=== PATIENT | female | born 1990 | race Caucasian/White ===

== ENCOUNTER 2019-09-19 13:52 | Emergency (ER) | payer OTHER, SELFPAY ==
--- NOTE | ~2019-09-19 | XR_ITS ---
XR foot LT 2V DATE: 09/19/2019 14:20 INDICATION: Left foot pain following a fall today. 34 weeks . TECHNIQUE: AP and lateral views COMPARISON: None FINDINGS: No fracture or dislocation, periosteal reaction or bone destruction. Joint spaces are well preserved. No erosive change. IMPRESSION: Negative Reviewed, dictated and finalized at location B. IMPRESSION: Negative
[2019-09-19 14:02] VITALS: BP 119/70; PULSE 88; RESP 16; TEMP 37.4; O2SAT 98
--- NOTE | 2019-09-19 14:19 | ED.GENADULT ---
HPI - General Adult General Chief complaint: Extremity Injury, Lower Stated complaint: Fell Left ankle pain History of Present Illness HPI narrative: Patient is a 29-year-old female presents to the urgent care today via POV for evaluation of a foot injury that occurred 1 hour prior to arrival. She reports fourth and fifth metatarsal pain. She also reports pain, numbness, tingling, and decreased range of motion. Injury occurred while walking. She states she rolled her ankle inward. Denies taking OTC meds for symptoms. Sitting improves pain weightbearing worsens pain. Pertinent negatives: fever, chills, sweats, change in appetite, poor p.o. intake, malaise, calf tenderness, skin color changes, rash, warmth, swelling, loss of sensation, deformity, weakness, difficulty with ambulation/coordination, nausea, vomiting, lymphadenopathy, shortness of breath, chest pain, heart palpitations, and heart murmur. Related Data Home Medications Medication Instructions Recorded Confirmed 09/19/19 Zyrtec 09/19/19 Allergies Allergy/AdvReac Type Severity Reaction Status Date / Time latex Allergy Mild Verified 02/23/19 11:02 Review of Systems Review of Systems: Narrative: All other systems reviewed and are negative PMFSH Comments I have reviewed and agree with the patient's past medical, surgical, social, and family hx as documented by the RN. There is no relevant family history pertinent to the presenting complaint. Exam Narrative: Exam Narrative: GENERAL: Well-appearing, well-nourished, and in no acute distress. HEAD: Normocephalic, atraumatic. NECK: Supple. No Lymphadenopathy or nuchal rigidity appreciated. CHEST: Bilateral lung jones are clear to auscultation. No respiratory distress. No evidence of cough or pleuritic cp upon examination. HEART: Regular rate and rhythm. No murmur, gallop, or rub heard. EXTREMITIES: Moderate pain illicited pain to dorsal and medial aspect of L foot. Moderate generalized pain elicited with all active and passive ROM. No evidence of injury, decreased ROM, swelling, cyanosis, hematoma, laceration, abrasion, deformity, rash, or puncture. No evidence of dislocation, ligament laxity, effusion, or pain at rest. Pulses palpable at 2+, strength 5/5, and cap refill < 3 seconds in affected extremity. DTRs normal. Gait normal. SKIN: Warm, dry, no rash. NEURO: No focal deficits. Alert and oriented x3. SPECIAL OBSERVATIONS: Smiling. Laughing. No evidence of discomfort. Course Vital Signs Vital signs: Vital Signs Temperature 99.3 F 09/19/19 14:02 Pulse Rate 88 09/19/19 14:02 Respiratory Rate 16 09/19/19 14:02 Blood Pressure 119/70 09/19/19 14:02 Pulse Oximetry 98 09/19/19 14:02 Temperature 99.3 F 09/19/19 14:02 Pulse Rate 88 09/19/19 14:02 Respiratory Rate 16 09/19/19 14:02 Blood Pressure 119/70 09/19/19 14:02 Pulse Oximetry 98 09/19/19 14:02 Procedures Orthopedic Splinting/Casting Injury #1: Splinting/Casting Date: 09/19/19 Splinting/Casting Time: 14:40 Side: left Lower Extremity Injury Location: foot Splint: customized in ED (sandra wrap) Pre-Procedure Neuro Vascular Exam: normal Post-Procedure Neuro Vascular Exam: normal Medical Decision Making Differential Diagnosis Differential Diagnosis: Sprain, strain, cellulitis, open fracture, closed fracture, gout Medical Records Medical records reviewed: Yes I reviewed the patient's medical records. Vital Signs Vital Signs: Vital Signs Temperature 99.3 F 09/19/19 14:02 Pulse Rate 88 09/19/19 14:02 Respiratory Rate 16 09/19/19 14:02 Blood Pressure 119/70 09/19/19 14:02 Pulse Oximetry 98 09/19/19 14:02 Temperature 99.3 F 09/19/19 14:02 Pulse Rate 88 09/19/19 14:02 Respiratory Rate 16 09/19/19 14:02 Blood Pressure 119/70 09/19/19 14:02 Pulse Oximetry 98 09/19/19 14:02 Imaging Data Attestation: I personally revie
== END 2019-09-19 14:40 | disposition home or self-care (01) ==
PROVIDERS: Emergency Provider Nurse Practitioner Family
DX: S93.402A Sprain of unspecified ligament of left ankle, initial encounter (principal); S96.912A Strain of unspecified muscle and tendon at ankle and foot level, left foot, initial encounter; X50.9XXA Other and unspecified overexertion or strenuous movements or postures, initial encounter
CPT/HCPCS: 73620; 99213; G0463

== ENCOUNTER 2019-09-28 09:40 | Outpatient (RCR) | payer OTHER, SELFPAY ==
[2019-09-27 11:38] LABS: Hemoglobin A1C 5.1 % (<5.7)
[2019-09-27 11:49] LABS: Basophils Percent Auto 0.2 % (0.2-1.2); Eosinophils Absolute Auto 0.2 K/mm3 (0-0.3); Eosinophils Percent Auto 2.2 % (0-4.4); Hematocrit 33.8 % (37.0-47.0); Hemoglobin 10.7 g/dL (12.0-15.0); Immature Granulocyte Absolute 0.09 K/mm3 (0.00-0.031); Immature Granulocyte Percent A 0.9 % (0-0.5); Lymphocytes Absolute Auto 1.73 K/mm3 (0.9-3.2); Lymphocytes Percent Auto 17.6 % (18.3-44.2); Mean Corpuscular HGB Conc 31.7 g/dl (32-36); Mean Corpuscular Hemoglobin 24.9 pg (26-34); Mean Corpuscular Volume 78.6 fl (80-100); Mean Platelet Volume 10.9 fl (7.4-10.4); Monocytes Absolute Auto 0.6 K/mm3 (0.1-0.6); Monocytes Percent Auto 6.1 % (2.6-8.5); Neutrophils Absolute Auto 7.2 K/mm3 (1.3-6.7); Platelet Count Result 234 k/mm3 (150-375); Red Cell Distribution Width 13.3 % (11.5-14.5); White Blood Count 9.9 K/mm3 (4.5-10.0)
[2019-09-27 12:12] LABS: Hepatitis B Surface Antigen Negative (Negative); Rubella IgG Antibody 23.4 IU/ML
[2019-09-27 12:19] LABS: HIV 1/2 Ab P24 Ag Result Negative (Negative)
[2019-09-27 12:26] LABS: Vitamin D 25 Hydroxy 20.8 ng/mL
[2019-09-28] MEDS: RHO(D) IMMUNE GLOBULIN 300 MCG SYRINGE IM (09:57)
[2019-09-30 10:31] LABS: Rapid Plasma Reagin Non-Reactive (NonReactive)
== END 2019-12-26 23:59 | disposition home or self-care (01) ==
LOC: ANHLAB 09:40
PROVIDERS: Visit Provider Obstetrics & Gynecology
DX: Z36.89 Encounter for other specified antenatal screening (principal); Z29.13 Encounter for prophylactic Rho(D) immune globulin; O36.0990 Maternal care for other rhesus isoimmunization, unspecified trimester, not applicable or unspecified; Z3A.00 Weeks of gestation of pregnancy not specified
CPT/HCPCS: 36415; 82306; 83036; 85025; 86592; 86703; 86762; 86900; 86901; 87340; 90384; 96372; G0432; J2790

== ENCOUNTER 2019-10-09 16:55 | Outpatient (RCR) | payer OTHER, SELFPAY ==
--- NOTE | ~2019-10-09 | US_ITS ---
EXAMINATION: US OB limited w BPP DATE: 10/09/2019 18:11 CDT INDICATION: Decreased movements. TECHNIQUE: Real-time transabdominal obstetric ultrasound. FINDINGS: There is a single living fetus in vertex presentation. The placenta is fundal without placenta previ a. cardiac activity and movement is noted with a heart rate of 142 beats per minute. A FI is 13.1 cm. Biophysical profile: breathin of 2 movement: 2 of 2 tone: 2 of 2 Amniotic flud pocket: 2 of 2 Total score: 8 of 8 IMPRESSION: 1. Single living intrauterine with heart rate of 142 BPM. 2: Total biophysical profile score of 8/8. 3: Normal DARRELL measures 13.1 cm. Reviewed, dictated and finalized at location A.
[2019-10-09 17:40] VITALS: BP 120/73; PULSE 96
--- NOTE | 2019-10-09 18:13 | PC.NURSE ---
Dr. Valladares notified of pt BPP and DARRELL results. BPP 8/8 and DARRELL 13.8. okay to Discharge. Labor precautions given.
== END 2019-10-31 09:30 | disposition home or self-care (01) ==
LOC: ANHOBOP 16:55
PROVIDERS: Family Provider Obstetrics & Gynecology; Visit Provider Obstetrics & Gynecology
DX: O36.8130 Decreased fetal movements, third trimester, not applicable or unspecified (principal); Z3A.35 35 weeks gestation of pregnancy
CPT/HCPCS: 59025; 76815; 76819

== ENCOUNTER 2019-10-31 01:50 | Inpatient (IN) | payer OTHER, SELFPAY ==
[2019-10-31] VITALS (59 sets, daily range): BP systolic 80–133; BP diastolic 62–90; PULSE 25–122; RESP 18; TEMP 36.6–37.3; O2SAT 81–100; BMI 29.2
--- NOTE | 2019-10-31 02:08 | LDADM ---
This patient, Anna Ovalle, was admitted to Labor/Delivery/Recovery 107 on 10/31/19 at 01:50. Plans for labor, pain management and were discussed with patient. Patient/family oriented to hospital policies and general routines including ID bracelet, bed and alarms, visiting hours, pain management, procedures, bathroom and other care routines, personal items, smoking policy, room service/diet and guest tray routines, security routines, and visiting hours. Patient/Family are encouraged to report perceived risks to care and to ask questions if they do not understand what they are told or what they should do. See OBIX for further documentation.
[2019-10-31 02:16] LABS: Basophils Percent Auto 0.2 % (0.2-1.2); Eosinophils Absolute Auto 0.2 K/mm3 (0-0.3); Eosinophils Percent Auto 1.3 % (0-4.4); Hematocrit 33.8 % (37.0-47.0); Hemoglobin 10.5 g/dL (12.0-15.0); Immature Granulocyte Absolute 0.07 K/mm3 (0.00-0.031); Immature Granulocyte Percent A 0.6 % (0-0.5); Lymphocytes Absolute Auto 2.58 K/mm3 (0.9-3.2); Lymphocytes Percent Auto 20.6 % (18.3-44.2); Mean Corpuscular HGB Conc 31.1 g/dl (32-36); Mean Corpuscular Hemoglobin 23.1 pg (26-34); Mean Corpuscular Volume 74.4 fl (80-100); Mean Platelet Volume 11.2 fl (7.4-10.4); Monocytes Absolute Auto 0.6 K/mm3 (0.1-0.6); Monocytes Percent Auto 5.1 % (2.6-8.5); Neutrophils Absolute Auto 9.1 K/mm3 (1.3-6.7); Neutrophils Percent Auto 72.2 % (45.5-73.1); Platelet Count Result 242 k/mm3 (150-375); Red Blood Count 4.54 M/mm3 (4.2-5.4); Red Cell Distribution Width 14.4 % (11.5-14.5); White Blood Count 12.5 K/mm3 (4.5-10.0)
[2019-10-31] MEDS: LACTATED RINGERS 1,000 ML 125 ML IV CONT ×2 (02:17→02:48)
--- NOTE | 2019-10-31 02:30 | WPDANESEPP ---
Anes - Eval Pre Procedure Procedure: Labor epidural Date/Time: 10/31/19 02:30 Surgeon: nestor Preop Diagnosis: Abd pain with epidural Pre Op Diagnosis: Contractions Patient Data Age: 29 Gender: F Height: 5 ft 6 in Weight: 82 kg Last Vital Signs Pulse 107 H 10/31/19 02:01 BP 115/85 10/31/19 02:01 Allergies Allergy/AdvReac Type Severity Reaction Status Date / Time latex Allergy Mild Verified 02/23/19 11:02 Home Medications Medication Instructions Recorded Confirmed Type PNV cmb#95-ferrous fumarate-FA 1 tablet PO DAILY 10/28/19 10/28/19 History [] acetaminophen [Tylenol] 325 mg PO ONCE PRN 10/28/19 10/28/19 History cetirizine [Zyrtec] 10 mg PO DAILY 10/28/19 10/28/19 History Laboratory Tests 10/31/19 10/31/19 02:09 02:09 WBC 12.5 K/mm3 H K/mm3 (4.5-10.0) RBC 4.54 M/mm3 M/mm3 (4.2-5.4) Hgb 10.5 g/dL L g/dL (12.0-15.0) Hct 33.8 % L % (37.0-47.0) MCV 74.4 fl L fl (80-100) MCH 23.1 pg L pg (26-34) MCHC 31.1 g/dl L g/dl (32-36) RDW 14.4 % % (11.5-14.5) Plt Count 242 k/mm3 k/mm3 (150-375) MPV 11.2 fl H fl (7.4-10.4) Immature Gran % (Auto) 0.6 % H % (0-0.5) Neut % (Auto) 72.2 % % (45.5-73.1) Lymph % (Auto) 20.6 % % (18.3-44.2) Dougherty % (Auto) 5.1 % % (2.6-8.5) Eos % (Auto) 1.3 % % (0-4.4) Baso % (Auto) 0.2 % % (0.2-1.2) Lymph # (Auto) 2.58 K/mm3 K/mm3 (0.9-3.2) Dougherty # (Auto) 0.6 K/mm3 K/mm3 (0.1-0.6) Eos # (Auto) 0.2 K/mm3 K/mm3 (0-0.3) Baso # (Auto) 0.0 K/mm3 K/mm3 (0.0-0.1) Abs Immat Gran (auto) 0.07 K/mm3 H K/mm3 (0.00-0.031) Absolute Neuts (auto) 9.1 K/mm3 H K/mm3 (1.3-6.7) Absolute Nucleated RBC 0.0 K/mm3 K/mm3 (0.0-0.012) Nucleated RBC % 0.0 % % (0.0-0.2) RPR Pending Patient hx anesthesia problems: none Family hx anesthesia problems: none PMFSH Past Medical History Medical History Anxiety and depression Migraines Smoker Social History Social History Years smoked: 10 Smoking status: Light tobacco smoker Tobacco type: cigarettes Second hand tobacco smoke exposure: Yes Substance use: never Gender identity (if verbalized by the patient): Female Spiritual care concerns: No Exam Day of Procedure 10/31/19 02:30 Patient weight: overweight Lungs: clear to auscultation Airway: Mallampati scale class II Neurological: alert and oriented
[2019-10-31] MEDS: CALCIUM CARBONATE (TUMS) 500 MG (200 MG ELEMENTAL) PO ×2 (03:07→05:57)
[2019-10-31] MEDS: OXYTOCIN 30 UNITS/NS 500 ML 30 UNITS/500 ML BAG 999 UNITS IV CONT (04:17)
--- NOTE | 2019-10-31 04:28 | WPDOBADMIT ---
Obstetrics - Admit Note Admission Note: 9 cm bulging bag AROM clear fluid. record reviewed. No pertinent additions to the history and/or any subsequent changes in the physical findings that are not consistent with the expected course of the were found. Additions to the history and/or subsequent changes in the physical findings follow. None.
--- NOTE | 2019-10-31 04:33 | P.PCNOB_ITS ---
OB - Delivery Note Procedure Delivery date: 10/31/19 events: Labor Augmentation Intrapartal events: None Delivery augmentation: rupture of membranes Delivery monitor: external FHT and external uterine Route of delivery: Laceration description: None Anesthesia type: Epidural Disposition: floor [place] Baby Date of : 10/31/19 Time of : 04:12 Weeks of gestation at delivery: 38 Infant gender: Male Weight (pounds): 7 Weight (ounces): 2 presentation: vertex position: Right Occiput Anterior Placenta delivery description: Spontaneous cord vessel description: 3 Vessels score one minute: 9 score five minutes: 9
--- NOTE | 2019-10-31 04:45 | PM.OBDSVD ---
DS: Diagnosis Discharge Diagnosis (1) (normal spontaneous vaginal delivery): Code(s): O80 - Encounter for full-term uncomplicated delivery Status: Acute Assessment and Plan: discharged home OB - DS: Summary OB Procedures : Ultrasound OB Procedures Intrapartum: Spontaneous Vag Delivery OB Procedures: : None Time Spent with Patient Time attestation: Total time spent providing and/or coordinating discharge services: Exam Narrative: Exam Narrative: ff below umbilicus DS: Data Data Completed and Pending Labs on day of discharge: Labs from last 24 hours 10/31/19 10/31/19 02:09 02:09 WBC 12.5 H RBC 4.54 Hgb 10.5 L Hct 33.8 L MCV 74.4 L MCH 23.1 L MCHC 31.1 L RDW 14.4 Plt Count 242 MPV 11.2 H Immature Gran % (Auto) 0.6 H Neut % (Auto) 72.2 Lymph % (Auto) 20.6 [place] % (Auto) 5.1 Eos % (Auto) 1.3 Baso % (Auto) 0.2 Lymph # (Auto) 2.58 [place] # (Auto) 0.6 Eos # (Auto) 0.2 Baso # (Auto) 0.0 Abs Immat Gran (auto) 0.07 H Absolute Neuts (auto) 9.1 H Absolute Nucleated RBC 0.0 Nucleated RBC % 0.0 RPR Pending Discharge Plan Discharge Attending physician on discharge: Az Oswald Discharging Clinician: Az Oswald Patient Disposition: Home, Self-Care Activity: may shower Diet: regular Discharge Instructions: Education: Mom and Baby Guide Given to: Mother Follow-Up: Call your delivering provider's office for an appointment to be seen in: Call for f/u appointment Mom and baby should come to the [facility] for the follow-up appointment. Appointment Date/Time: 2019 at 10:00 am What to expect at your follow-up visit: Blood Pressure Check Physical Assessment Call [phone] if you are unable to keep your appointment time. BREAST CARE: 1. Wear a snug supportive bra. 2. For engorgement discomfort: Breast Feeding: A. Apply warm moist washcloths B. Express milk as needed to relieve engorgement C. Wear loose clothing 3. For sore nipples: A. Identify correct latch-on B. Apply warm moist washcloths before and after nursing C. Air dry nipples after nursing D. May apply Lansinoh cream to nipples EPISIOTOMY/PERINEAL CARE: 1. Until bleeding stops, use your sundeep bottle after urinating 2. Change your pad frequently throughout the day 3. You may take sitz baths several times a day (fill your bathtub with warm water and soak for 20 minutes.) Do NOT bathe in the water 4. No tub baths until seen by your physician - You may shower ACTIVITY: 1. Rest as much as possible. 2. Do not exercise or lift anything heavier than your baby (such as laundry or other children.) 3. Avoid stairs or driving as much as possible. 4. Do not put anything into the vagina. No douching, tampons, or sexual activity until seen by physician. NOTIFY PHYSICIAN IF YOU HAVE ANY QUESTIONS OR IF ANY OF THE FOLLOWING SYMPTOMS OCCUR: 1. If your episiotomy or incision becomes red, swollen, or more painful than what you have experienced in the hospital. 2. If your vaginal bleeding becomes foul smelling. 3. If your vaginal bleeding becomes more heavy than a period or if your bleeding changes from pink to bright red. However, you may pass an occasional walnut-sized clot once or twice for the first week . 4. If you experience a sharp, shooting pain in you calves. 5. If you discover a hard, reddened area on your breast or if you experience flu-like symptoms. DIET: 1. Eat regular, well-balanced meals. 2. Drink plenty of fluids daily. If , drink to thirst. Stand Alone Forms: General Discharge Information Follow-up/Referrals: Az Oswald MD [Physician] - Call for Appointment Discharge Medications: New ibuprofen 600 mg Tablet 600 mg PO Q6H PRN (Reason: Cramping) Qty: 30 RF: 1 p
[2019-10-31] MEDS: OXYTOCIN 30 UNITS/NS 500 ML 30 UNITS/500 ML BAG 125 UNITS IV CONT (04:59)
[2019-10-31] MEDS: ACETAMINOPHEN 325 MG TABLET 650 MG PO (07:20)
[2019-10-31 07:25] LABS: Rapid Plasma Reagin Non-Reactive (NonReactive)
[2019-10-31] MEDS: WITCH HAZEL 40 PADS 1 PAD TOPICAL (08:22)
[2019-10-31] MEDS: IBUPROFEN 600 MG TABLET PO (08:22)
[2019-10-31] MEDS: MULTIVIT/MIN/PREN/FOL AC/IRON TABLET 1 TAB PO (09:56)
[2019-10-31] MEDS: LANOLIN (LANSINOH) 7.5 GM CREAM 1 APPLIC TOPICAL (09:57)
--- NOTE | 2019-10-31 11:56 | PC.NURSE ---
0828-Patient transferred to post room #292 via wheelchair. Support person present. Oriented to unit, room, information board, rooming in, admission packet and security measures. Patient verbalizes understanding.
[2019-10-31] MEDS: DOCUSATE SODIUM 100 MG CAPSULE PO (22:26)
[2019-11-01] MEDS: IBUPROFEN 600 MG TABLET PO ×2 (04:28→12:13)
[2019-11-01 05:49] LABS: Hematocrit 28.4 % (37.0-47.0); Hemoglobin 8.5 g/dL (12.0-15.0)
[2019-11-01] MEDS: MULTIVIT/MIN/PREN/FOL AC/IRON TABLET 1 TAB PO (08:36)
[2019-11-01] MEDS: DOCUSATE SODIUM 100 MG CAPSULE PO (08:37)
[2019-11-01] MEDS: POLYSACCHARIDE IRON COMPLEX 150 MG CAPSULE PO (08:37)
--- NOTE | 2019-11-01 08:54 | WPDANLDPN2 ---
Anes-Prog Note L&D Date/Time: 11/01/19 08:54 Comfortable throughout: labor and delivery Neuraxial method: epidural Epidural/Spinal procedure site: clean & non-tender Neuro status: Neuro function grossly intact. Cardiovascular status: normal Respiratory status: normal Airway patency: baseline Mental status: baseline Post-Op hydration status: normal Vital Signs: Last Vital Signs Temp 37.2 C 10/31/19 19:10 Pulse 73 10/31/19 19:10 Resp 18 10/31/19 19:10 BP 121/71 10/31/19 19:10 Pulse Ox 99 10/31/19 08:35 Pain score (VAS): 0/10. Patient resting in bed at time of assessment, appears comfortable. Post-procedural complaints: none Patient feedback: Patient satisfied with anesthetic care.
[2019-11-01 09:05] VITALS: BP 105/69; PULSE 68; RESP 18; TEMP 36.4; O2SAT 98
--- NOTE | 2019-11-01 12:04 | PM.OBPNVD ---
OB - PN: Subj Subjective Date/time seen: 11/01/19 12:04 Patient comments: no complaints and tolerating diet [place] baby status: doing well OB - PN: Obj Data Labs CBC & Chem 7: 11/01/19 04:34 Labs: Laboratory Results - last 24 hr 11/01/19 11/01/19 04:34 04:35 Hgb 8.5 L Hct 28.4 L Blood Type B Negative Antibody Screen TNP ALESSANDRO, IgG Interpret TNP ALESSANDRO, Poly Interpret TNP ALESSANDRO, Complement Interp TNP Screen Negative Baby's Blood Type A pos Baby's ALESSANDRO Positive Doses of RhIg Required 1 OB - PN A/P Assessment and Plan (1) (normal spontaneous vaginal delivery): Code(s): O80 - Encounter for full-term uncomplicated delivery Status: Acute Assessment and Plan: continue with ppp care. (2) Other iron deficiency anemias: Code(s): D50.8 - Other iron deficiency anemias Status: Acute Assessment and Plan: irons supple;ment twice a day Time Spent With Patient Time: Total time spent is greater than 50% in coordination of care (as documented) at patient's floor/unit and/or counseling patient:
[2019-11-01] MEDS: RHO(D) IMMUNE GLOBULIN 300 MCG SYRINGE IM (13:12)
--- NOTE | 2019-11-01 13:23 | PC.NURSE ---
Patient was given the opportunity to view the discharge video Mother & Baby Care, The First Two Weeks and to ask questions. Patient declined viewing the video and has been given the mother/baby guide for home reference.
[2019-11-02 10:20] VITALS: BP 111/76; PULSE 92; RESP 18; TEMP 37
== END 2019-11-01 13:50 | disposition home or self-care (01) | DRG 560 ==
LOC: ANHLDR 07:20 → ANHOB2 08:35
PROVIDERS: Admitting Provider Obstetrics & Gynecology; Visit Provider Obstetrics & Gynecology
DX: O99.334 Smoking (tobacco) complicating childbirth (principal); Z37.0 Single live birth; Z3A.38 38 weeks gestation of pregnancy; F17.210 Nicotine dependence, cigarettes, uncomplicated; O99.344 Other mental disorders complicating childbirth; F41.8 Other specified anxiety disorders; O99.02 Anemia complicating childbirth; D50.8 Other iron deficiency anemias
CPT/HCPCS: 36415; 85014; 85018; 85025; 85461; 86592; 86850; 86880; 86900; 86901; 90384; A9270; J2590; J2790; J2795; J7120

== ENCOUNTER 2020-03-11 22:41 | Emergency (ER) | payer OTHER, SELFPAY ==
[2020-03-11 22:43] VITALS: BP 128/85; PULSE 86; RESP 14; TEMP 36.5; O2SAT 100
[2020-03-12 00:59] VITALS: BP 111/76; PULSE 78; RESP 16; TEMP 36.4; O2SAT 100
--- NOTE | 2020-03-12 02:07 | ED.HA ---
HPI - Headache General Chief Complaint: Headache Stated Complaint: migraine VALENTIN Time Seen by Provider: 03/12/20 02:06 History of Present Illness HPI Narrative: Severe throbbing headache for the past 2 days. Associated with nausea,vomiting, photophobia. This is the smae as her previous migraines. No fever, trauma, weakness, numbness, vision changes. Related Data Home Medications Medication Instructions Recorded Confirmed PNV cmb#95-ferrous fumarate-FA 1 tablet PO DAILY 10/28/19 10/28/19 [] Zyrtec 10 mg PO DAILY 10/28/19 10/28/19 Allergies Allergy/AdvReac Type Severity Reaction Status Date / Time latex Allergy Mild Verified 02/23/19 11:02 Review of Systems Review of Systems: All systems reviewed & are unremarkable except as noted in HPI and below Constitutional: Constitutional: Denies fever(s) and Denies weakness Eyes: Eyes: Denies change in vision and Reports photophobia ENT: Denies dizziness Cardiovascular: Cardiovascular: Denies chest pain Respiratory: Respiratory: Denies dyspnea Gastrointestinal: Gastrointestinal: Denies abdominal pain, Reports nausea and Reports vomiting PMFSH Past Medical History Medical History Anxiety and depression Migraines (normal spontaneous vaginal delivery) Other iron deficiency anemias Smoker Social History Social History Years smoked: 10 Smoking status: Light tobacco smoker Tobacco type: cigarettes Second hand tobacco smoke exposure: Yes Substance use: never Gender identity (if verbalized by the patient): Female Spiritual care concerns: No Exam Const: General: healthy appearing, no acute distress and alert Orientation/consciousness: patient oriented x3 HENMT: Head: normal to inspection Eyes: Pupils: Equal, round and reactive pupils present Resp: Effort & Inspection: normal respiratory effort Auscultation: clear to auscultation bilaterally Cardio: Rate: regular rate Rhythm: regular rhythm Skin: General skin exam: normal color Neuro: General: patient oriented x3, moves all extremities, no focal motor deficits and CN's II-XI intact bilaterally Speech: normal speech Gait exam (Neuro): Normal gait present Extrem: General: normal to inspection Course Vital Signs Vital signs: Vital Signs Temperature 36.5 C 03/11/20 22:43 Pulse Rate 86 03/11/20 22:43 Respiratory Rate 14 03/11/20 22:43 Blood Pressure 128/85 03/11/20 22:43 Pulse Oximetry 100 03/11/20 22:43 Temperature 36.4 C L 03/12/20 00:59 Pulse Rate 58 L 03/12/20 03:48 Respiratory Rate 17 03/12/20 03:48 Blood Pressure 98/67 L 03/12/20 03:48 Pulse Oximetry 99 03/12/20 03:48 MDM - Headache MDM Narrative Medical decision making narrative: Reports that this is the same as usual migraine. No indicaiton for imaging. Feeling better and ready for discharge after treatment. Differential Diagnosis Differential diagnosis: Likely migraine Medical Records Attestation: I reviewed the patient's medical records. Discharge Plan Discharge Clinical Impression: Migraine Patient Disposition: Home, Self-Care Condition: Stable Instructions: Migraine Headache (ED) Prescriptions: No Action Zyrtec 10 mg Capsule 10 mg PO DAILY RF: 0 PNV cmb#95-ferrous fumarate-FA [] 28 mg iron- 800 mcg Tablet 1 tablet PO DAILY RF: 0 ibuprofen 600 mg Tablet 600 mg PO Q6H PRN (Reason: Cramping) Qty: 30 RF: 1 polysaccharide iron complex 150 mg iron Capsule 150 mg PO BIDWM Qty: 60 RF: 1 acetaminophen [Mapap (acetaminophen)] 325 mg Tablet 650 mg PO Q6H PRN (Reason: Mild Pain (1-3) Or Headache) RF: 0 Follow-up/Referrals: UNKNOWN,DOCTOR [Primary Care Provider] - Discharge Date/Time: 03/12/20 03:49
[2020-03-12] MEDS: KETOROLAC 30 MG/ML VIAL (*BKC) IV PUSH (02:37)
[2020-03-12] MEDS: diphenhydrAMINE HCl INJ 50 MG/ML VIAL IV PUSH (02:37)
[2020-03-12] MEDS: METOCLOPRAMIDE HCL INJ 10 MG/2 ML VIAL IV PUSH (02:38)
[2020-03-12] MEDS: SODIUM CHLORIDE 0.9% IV 1,000 ML 999 ML IV CONT (02:38)
[2020-03-12 03:48] VITALS: BP 98/67; PULSE 58; RESP 17; O2SAT 99
== END 2020-03-12 03:49 | disposition home or self-care (01) ==
PROVIDERS: Emergency Provider Emergency Medicine
DX: G43.909 Migraine, unspecified, not intractable, without status migrainosus (principal); F17.210 Nicotine dependence, cigarettes, uncomplicated
CPT/HCPCS: 96365; 96375; 99284; J0131; J1200; J1885; J2765; J7030

== ENCOUNTER 2020-06-05 20:08 | Emergency (ER) | payer OTHER, SELFPAY ==
[2020-06-05 20:10] VITALS: BP 120/70; PULSE 72; RESP 17; TEMP 36.2; O2SAT 99
--- NOTE | 2020-06-05 20:38 | ED.HA ---
HPI - Headache General Chief Complaint: Headache Stated Complaint: migraine Time Seen by Provider: 06/05/20 20:37 Source: patient Mode of arrival: ambulatory Limitations: no limitations History of Present Illness HPI Narrative: Patient is a 29-year-old female complaining of a migraine headache, frontal, throbbing, 8 out of 10, that started approximately 2 hours ago. Patient states she has a history of migraines and this is her typical migraine headache. Patient denies any neck pain, stiffness, speech or visual disturbance, weakness, numbness, unsteady gait, fever, chills or rash. Related Data Allergies Allergy/AdvReac Type Severity Reaction Status Date / Time latex Allergy Mild Unknown Verified 06/05/20 20:49 Review of Systems Review of Systems: All systems reviewed & are unremarkable except as noted in HPI and below Constitutional: Constitutional: Denies body ache(s), Denies chills, Denies excessive sweating, Denies fatigue, Denies fever(s), Denies headache(s), Denies lethargy, Denies malaise, Denies weakness and Denies weight loss Eyes: Eyes: Denies blurry vision, Denies change in vision and Denies loss of vision ENT: Denies dizziness, Denies ear discharge, Denies headache(s), Denies lip swelling, Denies epistaxis, Denies nasal congestion, Denies neck pain, Denies throat swelling and Denies tongue swelling Cardiovascular: Cardiovascular: Denies chest pain, Denies chest pain at rest, Denies chest pain with activity, Denies diaphoresis, Denies rapid heart rate, Denies edema, Denies irregular heart rhythm, Denies lightheadedness, Denies palpitations, Denies dyspnea and Denies dyspnea on exertion Respiratory: Respiratory: Denies chest congestion, Denies cough, Denies hemoptysis, Denies dyspnea and Denies dyspnea on exertion Gastrointestinal: Gastrointestinal: Denies abdominal pain, Denies melena, Denies hematochezia, Denies diarrhea, Denies nausea, Denies vomiting and Denies hematemesis Musculoskeletal: Musculoskeletal: Denies abnormal gait, Denies deformity, Denies joint swelling, Denies limited range of motion, Denies neck pain and Denies numbness Neurologic: Denies Abnormal speech present, Denies abnormal gait, Denies confusion, Denies dizziness, Denies focal weakness, Denies loss of vision, Denies numbness, Denies Other visual disturbances, Denies Sensory deficit (Neuro) and Denies weakness Psychiatric: Psychiatric: Denies confusion, Denies depression, Denies auditory hallucinations, Denies homicidal ideation and Denies suicidal ideation Endocrine: Endocrine: Denies cold intolerance, Denies excessive sweating, Denies fatigue, Denies heat intolerance and Denies palpitations Hematologic/Lymphatic: Hematologic/Lymphatic: Denies easy bleeding and Denies easy bruising Allergic/Immunologic: Allergic/Immunologic: Denies lip swelling, Denies throat swelling and Denies tongue swelling PMFSH Past Medical History Medical History Anxiety and depression Migraines (normal spontaneous vaginal delivery) Other iron deficiency anemias Smoker Social History Social History Years smoked: 10 Smoking status: Light tobacco smoker Tobacco type: cigarettes Second hand tobacco smoke exposure: Yes Substance use: never Gender identity (if verbalized by the patient): Female Spiritual care concerns: No Exam Const: General: cooperative, healthy appearing, comfortable, no acute distress, well developed, alert and awake; No confusion Orientation/consciousness: oriented to person, oriented to place, oriented to time, patient oriented x3 and No confusion Limitations: no limitations HENMT: Head: normal to inspection, normocephalic and atraumatic Ears: hearing grossly normal bilaterally, TM normal on the right and TM normal on the left General nose exam: Normal external nose present, Normal nares present and No nasal discharge present Face and sinus: normal facial
[2020-06-05] MEDS: diphenhydrAMINE HCl INJ 50 MG/ML VIAL 25 MG IV PUSH (20:56)
[2020-06-05] MEDS: METOCLOPRAMIDE HCL INJ 10 MG/2 ML VIAL IV PUSH (20:57)
[2020-06-05] MEDS: SODIUM CHLORIDE 0.9% IV 1,000 ML 999 ML IV CONT (20:57)
[2020-06-05 22:14] VITALS: BP 106/62; PULSE 51; RESP 16; TEMP 36.4; O2SAT 100
== END 2020-06-05 22:14 | disposition home or self-care (01) ==
PROVIDERS: Emergency Provider Emergency Medicine
DX: G43.909 Migraine, unspecified, not intractable, without status migrainosus (principal); F17.210 Nicotine dependence, cigarettes, uncomplicated
CPT/HCPCS: 96361; 96374; 96375; 99284; J1200; J2765; J7030

== ENCOUNTER 2020-07-08 13:18 | Outpatient (CLI) | payer OTHER, SELFPAY ==
--- NOTE | ~2020-07-08 | US_ITS ---
EXAMINATION: US OB <=14 wk fetus w TV EXAM DATE: 07/08/2020 13:54 INDICATION: , uncertain dates. 1st trimester. TECHNIQUE: Pelvic obstetrical transabdominal sonogram was performed by a technologist. There are mu ltiple grayscale and Doppler images available for interpretation. There are no earlier studies of th is gestation for comparison. FINDINGS: Uterus measures 8.6 x 4.8 x 7.8 cm. There is intrauterine gestation sac. The mean sac sophie meter of 9 mm corresponds to estimated gestational age by ultrasound of 5 weeks 3 days. Yolk sac is identified. There is no sonographic evidence of subchorionic hemorrhage. Both ovaries are identif ied and are morphologically normal. Small amount of free fluid in the pelvic cul-de-sac. IMPRESSION: Early intrauterine gestation sac, age by ultrasound 5 weeks 3 days. Cannot confirm viable pole at this time. Reviewed, dictated and finalized at location A. OGRAPHIC SURVEYOR
== END 2020-07-08 13:19 | disposition home or self-care (01) ==
PROVIDERS: PCP Internal Medicine; Visit Provider Obstetrics & Gynecology
DX: Z36.87 Encounter for antenatal screening for uncertain dates (principal); Z3A.01 Less than 8 weeks gestation of pregnancy
CPT/HCPCS: 76801; 76817

== ENCOUNTER 2020-07-17 08:40 | Outpatient (CLI) | payer OTHER, SELFPAY ==
--- NOTE | ~2020-07-17 | US_ITS ---
EXAMINATION: US OB <=14 wk fetus w TV DATE: 07/17/2020 11:12 INDICATION: First trimester dating TECHNIQUE: Real-time pelvic transabdominal and transvaginal ultrasound was performed. COMPARISON: 07/08/2020 FINDINGS: The uterus measures 9.7 x 6.5 x 5.3 cm. There is an intrauterine gestational sac. An appro ximately 1.2 x 1.1 cm hypoechoic area is seen adjacent to the gestational sac. A yolk sac is identifi ed. heart motion is identified measuring 115 beats per minute (bpm) by M-mode Doppler. The feta l crown rump length measures 6 mm , which correlates with an estimated gestational age of 6 weeks and 3 day(s) (+/-) 4 day(s). The right ovary measures 5.2 x 2.2 x 2.2 cm. The left ovary measures 2.8 x 1.6 x 1.6 cm. There is nor mal vascular flow in the ovaries. There is no free fluid in the pelvis. IMPRESSION: 1. Live intrauterine with an estimated gestational age of 6 weeks and 3 day(s) (+/-) 4 day( s) and an estimated delivery date of 03/09/2021. 2. Small subchorionic hematoma. Reviewed, dictated and finalized at location A. WORK TIER IMPRESSION: 1. Live intrauterine with an estimated gestational age of 6 weeks and 3 day(s) (+/-) 4 day(s) and an estimated delivery date of 03/09/2021. 2. Small subchorionic hematoma.
== END 2020-07-17 08:41 | disposition home or self-care (01) ==
PROVIDERS: PCP Internal Medicine; Visit Provider Obstetrics & Gynecology
DX: Z36.87 Encounter for antenatal screening for uncertain dates (principal); O36.8911 Maternal care for other specified fetal problems, first trimester, fetus 1; Z3A.00 Weeks of gestation of pregnancy not specified
CPT/HCPCS: 76801; 76817

== ENCOUNTER 2020-08-04 10:21 | Outpatient (CLI) | payer OTHER, SELFPAY ==
--- NOTE | ~2020-08-04 | US_ITS ---
EXAMINATION: US OB <= 14 weeks fetus DATE: 08/04/2020 10:47 INDICATION: Follow-up subchorionic hemorrhage TECHNIQUE: Real-time transabdominal and transvaginal obstetric ultrasound. FINDINGS: Comparison to multiple prior studies sequentially, with oldest reviewed study dated 2020. The uterus measures 10.5 x 7.5 x 5.7 cm. There is an intrauterine gestational sac, with pole id entified. The crown rump length measures 2.17 cm. heart tones are identified measuring 169 bpm . There is a subchorionic hemorrhage measuring 2 x 1.8 x 0.7 cm. The ovaries are within normal limits . Right ovary measures 3.3 x 1.5 x 2 cm. Left ovary measures 3.6 x 2.4 x 1.5 cm. IMPRESSION: 1. SL IUP with an EGA of 9 weeks, 2 days (EDC by initial ultrasound of 03/07/2021). 2: Small subchorionic hemorrhage. Reviewed, dictated and finalized at location A. LITIONIST IMPRESSION: 1. SL IUP with an EGA of 9 weeks, 2 days (EDC by initial ultrasound of 03/07/20). 2: Small subchorionic hemorrhage.
== END 2020-08-04 10:22 | disposition home or self-care (01) ==
LOC: ANHIMG 10:22
PROVIDERS: PCP Internal Medicine; Visit Provider Obstetrics & Gynecology
DX: O36.8911 Maternal care for other specified fetal problems, first trimester, fetus 1 (principal); Z3A.09 9 weeks gestation of pregnancy
CPT/HCPCS: 76801

== ENCOUNTER 2020-09-02 10:30 | Outpatient (CLI) | payer OTHER, SELFPAY ==
--- NOTE | ~2020-09-02 | US_ITS ---
EXAMINATION: US OB <= 14 weeks fetus EXAM DATE: 09/02/2020 10:55 INDICATION: Follow-up subchorionic hematoma. 2nd trimester. TECHNIQUE: Pelvic obstetrical transabdominal sonogram was performed by a technologist. There are mu ltiple grayscale and Doppler images available for interpretation. Comparison is made to prior examina tion from 08/04/2020. FINDINGS: Uterus measures 13.0 x 9.2 x 7.8 cm. There is intrauterine gestation sac. pole with heart rate confirmed at 161 beats per minute. The 7.1 cm crown-rump length corresponds to estimated gestational age by ultrasound of 13 weeks 2 days. There is no sonographic evidence of subchorioni c hemorrhage, can't identify previously seen sonographic abnormality. Both ovaries identified, morp hologically normal and demonstrate low resistance Doppler flow. IMPRESSION: Live intrauterine gestation without evidence of subchorionic hemorrhage. Reviewed, dictated and finalized at location A. STANT PORTFOLIO MANAGER IMPRESSION: Live intrauterine gestation without evidence of subchorionic hemor rhage.
== END 2020-09-02 10:31 | disposition home or self-care (01) ==
PROVIDERS: PCP Internal Medicine; Visit Provider Obstetrics & Gynecology
DX: O36.8910 Maternal care for other specified fetal problems, first trimester, not applicable or unspecified (principal)
CPT/HCPCS: 76801

== ENCOUNTER 2020-09-07 14:36 | Outpatient (RCR) | payer OTHER, SELFPAY ==
[2020-09-07 15:47] LABS: Basophils Percent Auto 0.2 % (0.2-1.2); Eosinophils Absolute Auto 0.3 K/mm3 (0-0.3); Eosinophils Percent Auto 3.4 % (0-4.4); Hematocrit 38.1 % (37.0-47.0); Hemoglobin 12.5 g/dL (12.0-15.0); Immature Granulocyte Absolute 0.04 K/mm3 (0.00-0.031); Immature Granulocyte Percent A 0.4 % (0-0.5); Lymphocytes Percent Auto 20.7 % (18.3-44.2); Mean Corpuscular HGB Conc 32.8 g/dl (32-36); Mean Corpuscular Hemoglobin 27.7 pg (26-34); Mean Corpuscular Volume 84.5 fl (80-100); Mean Platelet Volume 11.3 fl (7.4-10.4); Monocytes Absolute Auto 0.5 K/mm3 (0.1-0.6); Monocytes Percent Auto 5.8 % (2.6-8.5); Neutrophils Absolute Auto 6.4 K/mm3 (1.3-6.7); Neutrophils Percent Auto 69.5 % (45.5-73.1); Platelet Count Result 217 k/mm3 (150-375); Red Blood Count 4.51 M/mm3 (4.2-5.4); Red Cell Distribution Width 13.5 % (11.5-14.5); White Blood Count 9.2 K/mm3 (4.5-10.0)
[2020-09-07 15:59] LABS: Hemoglobin A1C 4.8 % (<5.7)
[2020-09-07 16:44] LABS: HIV 1/2 Ab P24 Ag Result Negative (Negative)
[2020-09-07 17:30] LABS: Rubella IgG Antibody 21.1 IU/ML
[2020-09-07 17:40] LABS: Vitamin D 25 Hydroxy 37.8 ng/mL
[2020-09-07 17:51] LABS: Hepatitis B Surface Anti Res Indeterminate
[2020-09-08 10:19] LABS: Rapid Plasma Reagin Non-Reactive (NonReactive)
[2020-09-08 10:33] LABS: Hepatitis B Surface Antigen Negative (Negative)
== END 2020-12-06 23:59 | disposition home or self-care (01) ==
LOC: ANHLAB 14:36
PROVIDERS: PCP Internal Medicine; Visit Provider Obstetrics & Gynecology
DX: Z01.83 Encounter for blood typing (principal); Z11.4 Encounter for screening for human immunodeficiency virus [HIV]
CPT/HCPCS: 36415; 82306; 83036; 85025; 86592; 86703; 86706; 86762; 86850; 86900; 86901; 87340; G0432

== ENCOUNTER 2020-10-09 09:00 | Outpatient (CLI) | payer OTHER, SELFPAY ==
--- NOTE | ~2020-10-09 | US_ITS ---
EXAMINATION: US OB /maternal detail EXAM DATE: 10/09/2020 09:57 INDICATION: anatomy. 2nd trimester. TECHNIQUE: Pelvic obstetrical transabdominal sonogram was performed by a technologist. There are mu ltiple grayscale and Doppler images available for interpretation. Comparison is made to prior examina tion from 09/02/2020. FINDINGS: There is a single fetus identified in breech presentation with a heart rate of 145 beats pe r minute. The placenta is located in the posterior position. There is no sonographic evidence of ret roplacental hemorrhage identified. AMNIOTIC FLUID INDEX Quadrant 1: 2.6 cm Quadrant 2: 2.8 cm Quadrant 3: 2.2 cm Quadrant 4: 1.8 cm Amniotic fluid index: 9.4 cm. (The 5th -- 95th percentile range is 8.7-20.2). BIOMETRIC DATA: Biparietal diameter (BPD): 4.1 cm ----------------> 18 weeks 3 days. Head circumference (HC): 15.7 cm ----------------> 18 weeks 4 days. Abdominal circumference (AC): 12.8 cm ----------> 18 weeks 3 days. Femur length (FL): 2.8 cm --------------------------> 18 weeks 4 days. These measurements are concordant. HC/AC ratio is 1.23 (The 5th -- 95th percentile range is 1.09-1.27. Estimated weight is 243 g +/- 36 g. This is the 49th percentile when the currently reported cl inical gestation age 18 weeks 3 days, clinical estimated date of delivery (VU-OPE) 03/09 is used. Feta l estimated gestational age based on measurements from this exam is 18 weeks 4 days, with an estimate d date of delivery (VU-AUA) 03/08. ANATOMIC SURVEY: The following anatomy is identified and is sonographically normal in appearance: Cerebral ventricles Cerebellum Cisterna magna Nuchal fold CTL-spine Four-chamber heart Diaphragm Stomach Kidneys Bladder Three-vessel cord Cord insertion Extremities Nose/lips IMPRESSION: 1. Single fetus in vertex presentation with heart rate 145 beats per minute. 2. Estimated weight of 243 grams, 49th percentile using the currently reported clinical gestat ion age of 18 weeks 3 days, VU(OPE) 03/09. 3. Normal anatomic survey. 4. Normal DARRELL 9.4 cm. Reviewed, dictated and finalized at location A. IMPRESSION: 1. Single fetus in vertex presentation with heart rate 145 beats per minute. 2. Estimated weight of 243 grams, 49th percentile using the currently re ported clinical gestation age of 18 weeks 3 days, VU(OPE) 03/09. 3. Normal anatomic survey. 4. Normal DARRELL 9.4 cm.
== END 2020-10-09 09:01 | disposition home or self-care (01) ==
PROVIDERS: PCP Internal Medicine; Visit Provider Obstetrics & Gynecology
DX: Z36.9 Encounter for antenatal screening, unspecified (principal); Z3A.18 18 weeks gestation of pregnancy
CPT/HCPCS: 76805